=== PATIENT | male | born 1970 | race Two or more races ===

== ENCOUNTER 2016-10-15 11:06 | Inpatient (IN) | payer OTHER ==
[2016-10-15 11:30] VITALS: BMI 26.6
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
[2016-10-15] MEDS ORDERED: ACETAMINOPHEN 325 MG TABLET (FP) PO PRN (13:23)
[2016-10-15] MEDS ORDERED: MAGNESIUM CITRATE 300 ML BOTTLE PO PRN (13:23)
[2016-10-15] MEDS ORDERED: MAG HYDROX/AL HYDROX/SIMETH 30 ML UNIT-DOSE CUP PO PRN (13:23)
[2016-10-15] MEDS ORDERED: NICOTINE POLACRILEX 4 MG GUM BUC PRN (13:23)
[2016-10-15] MEDS ORDERED: MAGNESIUM HYDROX 2400MG/30ML ORAL SUSPENSION 30 ML CUP PO PRN (13:23)
[2016-10-15] MEDS ORDERED: MENTHOL/PHENOL 1 EACH UD MM PRN (13:23)
[2016-10-15] MEDS ORDERED: hydrOXYzine PAMOATE 50 MG CAPSULE (FP) PO PRN (13:23)
[2016-10-15] MEDS ORDERED: guaiFENesin/D-METHORPHAN HB 10 ML UNIT-DOSE CUPS PO PRN (13:23)
[2016-10-15] MEDS ORDERED: P-EPHED 60MG/TRIPROLIDI 2.5MG TABLET PO PRN (13:23)
[2016-10-15] MEDS ORDERED: LOPERAMIDE HCL 2 MG CAPSULE PO PRN (13:23)
[2016-10-15] MEDS ORDERED: IBUPROFEN 400 MG TABLET (FP) PO PRN (13:23)
[2016-10-15 16:45] LABS: URINE APPEARANCE CLEAR; URINE BILIRUBIN NEGATIVE (NEGATIVE); URINE BLOOD NEGATIVE (NEGATIVE); URINE COLOR YELLOW; URINE GLUCOSE (UA) NEGATIVE (NEGATIVE); URINE KETONE NEGATIVE (NEGATIVE); URINE LEUK ESTERASE NEGATIVE (NEGATIVE); URINE NITRITE NEGATIVE (NEGATIVE); URINE PROTEIN NEGATIVE (NEGATIVE)
[2016-10-15 17:13] LABS: MCH 31.5 pg (25.7-33.7); MCHC 33.7 g/dl (32.0-35.9); MEAN CELL VOLUME 93.7 fl (80-96); MEAN PLT VOLUME 12.8 fl (7.5-11.1); PLATELET COUNT 116 K/MM3 (134-434); RDW 12.6 % (11.9-15.9); WHITE BLOOD COUNT 9.2 K/mm3 (4.0-10.0)
[2016-10-15 17:37] LABS: ALBUMIN 4.3 g/dl (3.4-5.0); ALK PHOS 74 U/L (45-117); ANION GAP 6 (8-16); BILIRUBIN,TOTAL 0.4 mg/dL (0.2-1.0); CALCIUM 8.9 mg/dL (8.5-10.1); CO2 31 mmol/L (21-32); GLUCOSE,RANDOM 130 mg/dL (74-106); SGOT/AST 19 U/L (15-37); SGPT/ALT 26 U/L (12-78); TOT PROT 7.1 g/dl (6.4-8.2)
[2016-10-15] MEDS: MIRTAZAPINE 15 MG TABLET (FP) PO SCH (21:18)
[2016-10-15] MEDS: GABAPENTIN 400 MG CAPSULE (FP) PO SCH (21:18)
[2016-10-15] MEDS: THIAMINE HCL 100 MG TABLET (FP) PO SCH (21:18)
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
[2016-10-16] MEDS: GABAPENTIN 400 MG CAPSULE (FP) PO SCH ×2 (09:44→21:06)
[2016-10-16] MEDS: NICOTINE 21 MG/24 HOURS TOPICAL PATCH TD SCH (09:45)
[2016-10-16] MEDS: PRENATAL VITAMINS W/ FOLIC ACID TABLET (FP) PO SCH (09:45)
--- NOTE | 2016-10-16 12:12 | EKG ---
Test Reason : Blood Pressure : / mmHG Vent. Rate : 063 BPM Atrial Rate : 063 BPM P-R Int : 106 ms QRS Dur : 104 ms QT Int : 402 ms P-R-T Axes : 016 081 039 degrees QTc Int : 411 ms SINUS RHYTHM WITH SHORT RI WITH PREMATURE ATRIAL COMPLEXES IN A PATTERN OF BIGEMINY OTHERWISE NORMAL ECG NO PREVIOUS ECGS AVAILABLE Confirmed by CALE KOROMA MD ([id number]) on 10/16/2016 12:11:42 PM Referred By: Confirmed By:CALE KOROMA MD
[2016-10-16 12:26] LABS: HIV 1 & 2 AB NEGATIVE; HIV 1 AGp24 NEGATIVE
[2016-10-16] MEDS: THIAMINE HCL 100 MG TABLET (FP) PO SCH (21:04)
[2016-10-16] MEDS: MIRTAZAPINE 15 MG TABLET (FP) PO SCH (21:04)
[2016-10-17] MEDS: GABAPENTIN 400 MG CAPSULE (FP) PO SCH ×2 (09:48→21:21)
[2016-10-17] MEDS: PRENATAL VITAMINS W/ FOLIC ACID TABLET (FP) PO SCH (09:48)
[2016-10-17] MEDS: NICOTINE 21 MG/24 HOURS TOPICAL PATCH TD SCH (09:48)
[2016-10-17] MEDS: MIRTAZAPINE 15 MG TABLET (FP) PO SCH (21:21)
[2016-10-17] MEDS: THIAMINE HCL 100 MG TABLET (FP) PO SCH (21:22)
[2016-10-18] MEDS: PRENATAL VITAMINS W/ FOLIC ACID TABLET (FP) PO SCH (09:37)
[2016-10-18] MEDS: NICOTINE 21 MG/24 HOURS TOPICAL PATCH TD SCH (09:37)
[2016-10-18] MEDS: GABAPENTIN 400 MG CAPSULE (FP) PO SCH ×2 (09:37→21:28)
[2016-10-18] MEDS: METHOCARBAMOL 750 MG TABLET PO SCH (21:28)
[2016-10-18] MEDS: MIRTAZAPINE 15 MG TABLET (FP) PO SCH (21:28)
[2016-10-18] MEDS: THIAMINE HCL 100 MG TABLET (FP) PO SCH (21:29)
[2016-10-18] MEDS: diphenhydrAMINE HCL 50 MG CAPSULE PO PRN (21:29)
[2016-10-19] MEDS: GABAPENTIN 400 MG CAPSULE (FP) PO SCH ×2 (10:15→21:39)
[2016-10-19] MEDS: PRENATAL VITAMINS W/ FOLIC ACID TABLET (FP) PO SCH (10:15)
[2016-10-19] MEDS: NICOTINE 21 MG/24 HOURS TOPICAL PATCH TD SCH (10:16)
[2016-10-19] MEDS: METHOCARBAMOL 750 MG TABLET PO SCH ×2 (10:16→21:38)
[2016-10-19] MEDS: MIRTAZAPINE 15 MG TABLET (FP) PO SCH (21:39)
[2016-10-19] MEDS: THIAMINE HCL 100 MG TABLET (FP) PO SCH (21:40)
[2016-10-19] MEDS: diphenhydrAMINE HCL 50 MG CAPSULE PO PRN (21:40)
[2016-10-20] MEDS: METHOCARBAMOL 750 MG TABLET PO SCH ×2 (09:45→21:09)
[2016-10-20] MEDS: PRENATAL VITAMINS W/ FOLIC ACID TABLET (FP) PO SCH (09:45)
[2016-10-20] MEDS: NICOTINE 21 MG/24 HOURS TOPICAL PATCH TD SCH (09:45)
[2016-10-20] MEDS: GABAPENTIN 400 MG CAPSULE (FP) PO SCH ×2 (09:45→21:09)
[2016-10-20] MEDS: MIRTAZAPINE 15 MG TABLET (FP) PO SCH (21:09)
[2016-10-20] MEDS: diphenhydrAMINE HCL 50 MG CAPSULE PO PRN (21:10)
[2016-10-20] MEDS: THIAMINE HCL 100 MG TABLET (FP) PO SCH (21:11)
[2016-10-21] MEDS: PRENATAL VITAMINS W/ FOLIC ACID TABLET (FP) PO SCH (09:36)
[2016-10-21] MEDS: GABAPENTIN 400 MG CAPSULE (FP) PO SCH ×2 (09:36→21:26)
[2016-10-21] MEDS: NICOTINE 21 MG/24 HOURS TOPICAL PATCH TD SCH (09:37)
[2016-10-21] MEDS: METHOCARBAMOL 750 MG TABLET PO SCH ×2 (09:37→21:26)
[2016-10-21] MEDS: THIAMINE HCL 100 MG TABLET (FP) PO SCH (21:25)
[2016-10-21] MEDS: MIRTAZAPINE 15 MG TABLET (FP) PO SCH (21:26)
[2016-10-21] MEDS: diphenhydrAMINE HCL 50 MG CAPSULE PO PRN (21:26)
[2016-10-22] MEDS: GABAPENTIN 400 MG CAPSULE (FP) PO SCH ×2 (09:48→21:19)
[2016-10-22] MEDS: NICOTINE 21 MG/24 HOURS TOPICAL PATCH TD SCH (09:48)
[2016-10-22] MEDS: PRENATAL VITAMINS W/ FOLIC ACID TABLET (FP) PO SCH (09:48)
[2016-10-22] MEDS: METHOCARBAMOL 750 MG TABLET PO SCH ×2 (09:48→21:18)
[2016-10-22] MEDS ORDERED: IBUPROFEN 600 MG TABLET (FP) PO PRN (12:36)
--- NOTE | 2016-10-22 14:56 | PN ---
Psychiatric Progress Note Vital Signs: Vital Signs Period Temp Pulse Resp BP Sys/Velasco Pulse Ox Last 24 Hr 98.4 F 63 18-18 127/76 Date of Session: 10/22/16 Chief Complaint:: Discharge Note HPI: Patient addressing Alcohol, Opoid and Cocaine Dependence comorbid with Nicotine Dependence, Bipolar Disorder and PTSD ROS: Seizure Disorder, Blindness left eye Current Medications: Active Medications Generic Name Dose Route Start Last Admin Trade Name Freq PRN Reason Stop Dose Admin Acetaminophen 650 mg 10/15/16 13:23 10/19/16 20:49 Tylenol - PO 650 mg Q4H PRN Administration PAIN Al Hydroxide/Mg Hydroxide 30 ml 10/15/16 13:23 Mylanta Oral Suspension - PO Q6H PRN DYSPEPSIA Diphenhydramine HCl 50 mg 10/15/16 13:23 10/21/16 21:26 Benadryl - PO 50 mg HSMR1 PRN Administration INSOMNIA Eucalyptus/Menthol/Phenol/Sorbitol 1 each 10/15/16 13:23 Cepastat Lozenge - MM Q4H PRN SORE THROAT Gabapentin 1,600 mg 10/15/16 22:00 10/22/16 09:48 Neurontin - PO 1,600 mg BID LYNN Administration Guaifenesin 10 ml 10/15/16 13:23 Robitussin Dm - PO Q6H PRN COUGH Hydroxyzine Pamoate 50 mg 10/15/16 13:23 Vistaril - PO Q4H PRN AGITATION Ibuprofen 600 mg 10/22/16 12:36 Motrin - PO Q6H PRN PAIN Loperamide HCl 4 mg 10/15/16 13:23 Imodium - PO Q6H PRN DIARRHEA Magnesium Citrate 300 ml 10/15/16 13:23 10/17/16 12:41 Citroma - PO 300 ml Q48H PRN Administration CONSTIPATION Magnesium Hydroxide 30 ml 10/15/16 13:23 10/16/16 15:02 Milk Of Magnesia - PO 30 ml DAILY PRN Administration CONSTIPATION Methocarbamol 750 mg 10/18/16 22:00 10/22/16 09:48 Robaxin - PO 750 mg BID LYNN Administration Mirtazapine 45 mg 10/15/16 22:00 10/21/16 21:26 Remeron - PO 45 mg HS LYNN Administration Nicotine 21 mg 10/16/16 10:00 10/22/16 09:48 Nicoderm Patch - TD Not Given DAILY LYNN Nicotine Polacrilex 4 mg 10/15/16 13:23 Nicorette Gum - BUC Q2H PRN NICOTINE REPLACEMENT RX Multivit/Folic Acid/Iron 1 tab 10/16/16 10:00 10/22/16 09:48 Vitamins (Sjr) - PO 1 tab DAILY LYNN Administration Pseudoephedrine/Triprolidine 1 combo 10/15/16 13:23 Actifed - PO TID PRN NASAL CONGESTION Thiamine HCl 100 mg 10/15/16 22:00 10/21/16 21:25 Vitamin B1 - PO 100 mg HS LYNN Administration Current Side Effect: No Lab tests ordered: Yes Lab tests reviewed: Yes Provider note:: Patient will complete this program on 10/23/16. He has partially met his treatment goals and will continue to address his issues in outpatient treatment at [facility]. Told music writer that from his participation in this program, he has learned the importance of compliance to outpatient treatment and make AA/NA meeting. He responded well to Remeron 45 mg po HS and Gabapentin 1600 mg po BID. Scripts for 30 days supply of medications will be electronically transmitted to [facility] at [address] [place] [address]. He is stable for discharge on 10/23/16 Total face to face time:: 35 Mental Status Exam - Mental Status Exam Alert and Oriented to: Time, Place, Person Cognitive Function: Fair Patient Appearance: Well Groomed Mood: Hopeful, Euthymic Affect: Appropriate Patient Behavior: Cooperative Speech Pattern: Clear Voice Loudness: Normal Thought Process: Intact, Goal Oriented Thought Disorder: Not Present Hallucinations: Denies Suicidal Ideation: Denies Homicidal Ideation: Denies Insight/Judgement: Fair Sleep: Fair Appetite: Good Muscle strength/Tone: Normal Gait/Station: Normal Psychiatric Treatment Plan - Problem List (1) Alcohol dependence Current Visit: No (2) Opioid dependence Current Visit: Yes (3) Cocaine dependence Current Visit: Yes (4) Nicotine dependence Current Visit: Yes (5) Bipolar disorder Current Visit: Yes (6) PTSD (post-traumatic stress disorder) Current Visit: Yes (7) Seizure disorder Current Visit: Yes (8) left eye blindness Current Visit: No Initial treatment plan: Patient will be discharged tomorrow and referred to [facility] for outpatient treatment
[2016-10-22] MEDS: THIAMINE HCL 100 MG TABLET (FP) PO SCH (21:18)
[2016-10-22] MEDS: MIRTAZAPINE 15 MG TABLET (FP) PO SCH (21:18)
[2016-10-22] MEDS: diphenhydrAMINE HCL 50 MG CAPSULE PO PRN (21:20)
[2016-10-23 06:59] VITALS: BP 125/82; PULSE 65; TEMP 97.6
[2016-10-23] MEDS: METHOCARBAMOL 750 MG TABLET PO SCH (09:03)
[2016-10-23] MEDS: PRENATAL VITAMINS W/ FOLIC ACID TABLET (FP) PO SCH (09:03)
[2016-10-23] MEDS: GABAPENTIN 400 MG CAPSULE (FP) PO SCH (09:03)
[2016-10-23] MEDS: NICOTINE 21 MG/24 HOURS TOPICAL PATCH TD SCH (09:03)
== END 2016-10-23 10:07 | disposition home or self-care (01) | DRG 772 ==
LOC: YASAS 11:06 → Y3W 13:32
PROVIDERS: ADMIT Psychiatry & Neurology Psychiatry; ATTEND Psychiatry & Neurology Psychiatry
PROC: HZ42ZZZ Group Counseling for Substance Abuse Treatment, Cognitive-Behavioral (ICD-10-PCS; principal; 2016-10-15)
DX: F11.20 Opioid dependence, uncomplicated (principal); F10.20 Alcohol dependence, uncomplicated; F14.20 Cocaine dependence, uncomplicated; F17.210 Nicotine dependence, cigarettes, uncomplicated; F31.9 Bipolar disorder, unspecified; F43.10 Post-traumatic stress disorder, unspecified; H54.42 Blindness, left eye, normal vision right eye; G40.909 Epilepsy, unspecified, not intractable, without status epilepticus
CPT/HCPCS: 36415; 80053; 81003; 85027; 86593; 87389; 93005; 93010